=== PATIENT | male | born 1990 | race Two or more races ===

== ENCOUNTER 2016-05-19 09:00 | Emergency (ER) | payer OTHER ==
[~2016-05-19] VITALS: Ht 162.6 cm; Wt 78.5 kg
[2016-05-19] MEDS ORDERED: ONDANSETRON HCL/PF 4 MG/2 ML VIAL IVP ONE (09:30)
[2016-05-19] MEDS ORDERED: KETOROLAC TROMETHAMINE INJ 30 MG/ML VIAL IV ONE (09:30)
[2016-05-19] MEDS ORDERED: IV NS 0.9% 1,000 ML BAG IV ONE (09:30)
[2016-05-19] MEDS ORDERED: KETOROLAC TROMETHAMINE INJ 30 MG/ML VIAL ONE (09:37)
[2016-05-19] MEDS ORDERED: IV SET PRIMARY 1 EA INFUS.SET MC ONE (09:37)
[2016-05-19] MEDS ORDERED: IV NS 0.9% 1,000 ML ONE (09:37)
[2016-05-19] MEDS ORDERED: ONDANSETRON HCL/PF 4 MG/2 ML VIAL ONE (09:37)
[2016-05-19 09:48] LABS: CALCIUM, SERUM 8.5 mg/dL (8.5-10.1); CREATININE 1.1 mg/dL (0.6-1.3); POTASSIUM 3.8 mmol/L (3.5-5.1)
[2016-05-19 09:50] LABS: BASOPHILS # (AUTO) 0.1 /CMM (0.0-0.2); BASOPHILS % (AUTO) 1.6 % (0.0-2.0); DIFF TOTAL % 100 %; EOSINOPHILS # (AUTO) 0.1 /CMM (0.0-0.7); EOSINOPHILS % (AUTO) 2.2 % (0.0-6.0); HEMATOCRIT 42 % (39-51); HEMOGLOBIN 14.7 g/dL (13.5-17.5); LYMPHOCYTES # (AUTO) 2.2 /CMM (0.8-4.8); LYMPHOCYTES % (AUTO) 39.7 % (20.0-44.0); MEAN CORPUSCULAR HEMOGLOBIN 31 PG (26.0-33.0); MEAN CORPUSCULAR HGB CONC 35 g/dl (31.0-36.0); MEAN CORPUSCULAR VOLUME 88 fL (80-96); MONOCYTES # (AUTO) 0.3 /CMM (0.1-1.30); MONOCYTES % (AUTO) 5.2 % (2.0-12.0); NEUTROPHILS # (AUTO) 2.9 /CMM (1.8-8.9); NEUTROPHILS % (AUTO) 51.3 % (43.0-81.0); PLATELET COUNT (AUTO) 165 /CMM (150-450); RED BLOOD CELL COUNT(AUTO) 4.78 MIL/uL (4.5-6.0); WHITE BLOOD COUNT (AUTO) 5.6 K/uL (4.3-11.0)
[2016-05-19 09:54] LABS: ALBUMIN 3.9 g/dL (3.4-5.0); BILIRUBIN,DIRECT 0.1 mg/dL (0.0-0.2); BILIRUBIN,TOTAL 0.4 mg/dL (0.2-1.0); INDIRECT BILIRUBIN 0.3 mg/dL (0.0-1.1); TOTAL PROTEIN, SERUM 6.9 g/dL (6.4-8.2)
[2016-05-19 11:07] VITALS: BP 129/87
[2016-05-19 12:45] LABS: BAND % (MANUAL) 1 % (0.0-5.0); EOSINOPHILS % (MANUAL) 3 % (0-4); LYMPHOCYTES % (MANUAL) 44 % (16-48)
[2016-05-19 12:47] LABS: ANISOCYTOSIS 1+; PLATELET ESTIMATE DECREASED
== END 2016-05-19 11:09 | disposition home or self-care (01) ==
LOC: ER 09:04
DX: N23 Unspecified renal colic (principal); F17.200 Nicotine dependence, unspecified, uncomplicated; Z90.89 Acquired absence of other organs
CPT/HCPCS: 36415; 74176; 80048; 80076; 83690; 85025; 96361; 96374; 96375; 99285; A4606; J1885; J2405; J7030; Z7610